=== PATIENT | female | born 1990 | race Caucasian/White ===

== ENCOUNTER 2018-11-06 16:04 | Emergency (ER) | payer MEDICAID ==
[~2018-11-06] VITALS: Ht 170.2 cm; Wt 59.2 kg
[~2018-11-06 16:04] MED LIST: SERT-275
[2018-11-06 16:53] LABS: Basophils # (auto) 0 uL; Basophils % (auto) 0.8 % (0.0-2.0); Eosinophils # (auto) 0 uL; Eosinophils % (auto) 0.3 % (0.0-7.0); Hematocrit 41.5 % (36.0-46.0); Hemoglobin 14.1 g/dL (12.2-16.2); Lymphocytes # (auto) 2.3 uL; Lymphocytes % (auto) 38.7 % (10.0-50.0); Mean Corpuscular Hemoglobin 31.7 pg (28.0-32.0); Mean Corpuscular Volume 93.2 fL (80.0-100.0); Monocytes # (auto) 0.3 uL; Monocytes % (auto) 5.4 % (0.0-12.0); Neutrophils # (auto) 3.3 uL; Neutrophils % (auto) 54.8 % (37.0-80.0); Nucleated Red Blood Cells % 0.1 %; Platelet Count (auto) 262 10^3/uL (140-450); Red Blood Cells 4.45 10^6/uL (4.0-5.20); Red Cell Distribution Width 12.5 % (11.8-14.3)
[2018-11-06 16:59] LABS: Urine Bacteria NONE SEEN /hpf (None Seen); Urine Blood TRACE /uL (Negative); Urine Mucus FEW (None Seen); Urine Specific Gravity 1.037 (1.001-1.035); Urine WBC 6 /hpf (0 - 5)
[2018-11-06 17:06] LABS: Calcium 8.5 mg/dL (8.5-10.1); Potassium 3.8 mmol/L (3.5-5.1)
[2018-11-06 17:09] LABS: BUN/Creatinine Ratio 18.4; Bilirubin, Total 0.2 mg/dL (0.2-1.0); Total Protein 7.8 g/dL (6.4-8.2)
[2018-11-06] MEDS ORDERED: cefTRIAXone 1GM/50ML D5W 50 ML IV ONE (21:15)
[2018-11-06] MEDS ORDERED: ONDANSETRON HCL 4 MG/2 ML VIAL IV ONE (21:15)
[2018-11-06] MEDS ORDERED: SODIUM CHLORIDE 0.9% 1,000 ML IV ONE (21:15)
[2018-11-06 22:03] VITALS: BP 113/79
== END 2018-11-06 23:35 | disposition home or self-care (01) ==
LOC: ER 16:09
DX: N39.0 Urinary tract infection, site not specified (principal); R11.2 Nausea with vomiting, unspecified; N80.9 Endometriosis, unspecified
CPT/HCPCS: 36415; 74176; 80053; 81001; 81025; 82962; 85025; 94761; 96365; 96375; 99284; J0696; J2405; J7030

== ENCOUNTER 2019-02-23 12:42 | Day surgery (SDC) | payer MEDICAID ==
[2019-02-22 11:29] LABS: Basophils # (auto) 0.1 uL; Basophils % (auto) 0.8 % (0.0-2.0); Eosinophils # (auto) 0 uL; Eosinophils % (auto) 0.4 % (0.0-7.0); Hematocrit 40.5 % (36.0-46.0); Hemoglobin 13.7 g/dL (12.2-16.2); Lymphocytes # (auto) 1.5 uL; Lymphocytes % (auto) 19.1 % (10.0-50.0); Mean Corpuscular Hemoglobin 31.5 pg (28.0-32.0); Mean Corpuscular Hgb Conc. 33.9 g/dL (32.0-36.0); Mean Corpuscular Volume 92.9 fL (80.0-100.0); Monocytes # (auto) 0.4 uL; Monocytes % (auto) 5.4 % (0.0-12.0); Neutrophils % (auto) 74.3 % (37.0-80.0); Nucleated Red Blood Cells % 0.1 %; Platelet Count (auto) 275 10^3/uL (140-450); Red Blood Cells 4.36 10^6/uL (4.0-5.20); Red Cell Distribution Width 12.8 % (11.8-14.3); White Blood Cell 8.1 10^3/uL (4.4-10.8)
[2019-02-22 11:43] LABS: Partial Thromboplastin Time 29.3 sec (23.64-32.05)
[2019-02-22 12:19] LABS: Urine Bacteria NONE SEEN /hpf (None Seen); Urine Blood Negative /uL (Negative); Urine Specific Gravity 1.015 (1.001-1.035); Urine WBC <1 /hpf (0 - 5)
[2019-02-22 13:22] LABS: Potassium 4.3 mmol/L (3.5-5.1)
[2019-02-22 13:34] LABS: Albumin 3.8 g/dL (3.4-5.0); BUN/Creatinine Ratio 10.4; Calcium 9.2 mg/dL (8.5-10.1)
[2019-02-22 13:35] LABS: Bilirubin, Total 0.2 mg/dL (0.2-1.0); Total Protein 8.3 g/dL (6.4-8.2)
[~2019-02-23] VITALS: Ht 170.2 cm; Wt 56.7 kg
[2019-02-23] MEDS ORDERED: ceFAZolin 1GM/50ML 50 ML IV ONE (14:56)
[2019-02-23] MEDS ORDERED: ROPIVACAINE 0.5% (5MG/ML) 20ML AMPULE IJ ONE ×2 (16:43→18:29)
[2019-02-23] MEDS ORDERED: fentaNYL CITRATE 100 MCG/2 ML VL ONE (16:52)
[2019-02-23] MEDS ORDERED: MIDAZOLAM HCL 1MG/1ML-2 ML VIAL ONE (16:52)
[2019-02-23] MEDS ORDERED: PROPOFOL 10 MG/ML 20 ML IV ONE (16:54)
[2019-02-23] MEDS ORDERED: fentaNYL CITRATE 100 MCG/2 ML VL IV ONE (18:12)
[2019-02-23] MEDS ORDERED: KETOROLAC TROMETH 30 MG/ML 1ML VIAL IV ONE (18:15)
[2019-02-23] MEDS ORDERED: fentaNYL CITRATE 100 MCG/2 ML VL IV PRN (18:15)
[2019-02-23] MEDS ORDERED: ePHEDrine SULFATE 50 MG/ML AMP IV PRN (18:15)
[2019-02-23] MEDS ORDERED: hydrALAZINE HCL 20 MG/ML VL IV PRN (18:15)
[2019-02-23] MEDS ORDERED: ONDANSETRON HCL 4 MG/2 ML VIAL IV PRN (18:15)
[2019-02-23] MEDS ORDERED: KETOROLAC TROMETH 30 MG/ML 1ML VIAL ONE (18:21)
[2019-02-23] MEDS: fentaNYL CITRATE 100 MCG/2 ML VL IV PRN ×2 (18:38→18:58)
[2019-02-23 19:10] VITALS: BP 126/78
== END 2019-02-23 19:25 | disposition home or self-care (01) ==
LOC: SUR 12:42
PROVIDERS: ATTEND Podiatrist Foot & Ankle Surgery
DX: M20.12 Hallux valgus (acquired), left foot (principal); M20.42 Other hammer toe(s) (acquired), left foot; M21.622 Bunionette of left foot; M21.962 Unspecified acquired deformity of left lower leg; M21.42 Flat foot [pes planus] (acquired), left foot; F41.9 Anxiety disorder, unspecified; F32.9 Major depressive disorder, single episode, unspecified; N80.9 Endometriosis, unspecified
CPT/HCPCS: 28110; 28285; 28296; 29999; 36415; 73620; 80053; 81001; 84702; 85025; 85610; 85730; C1713; C1769; J0690; J1885; J2250; J2704; J2795; J3010; J7030

== ENCOUNTER → 2019-06-08 | Day surgery (SDC) | payer MEDICAID ==
[2019-06-06 13:48] LABS: Basophils # (auto) 0.1 uL; Eosinophils # (auto) 0 uL; Eosinophils % (auto) 0.4 % (0.0-7.0); Hematocrit 40.5 % (36.0-46.0); Hemoglobin 13.7 g/dL (12.2-16.2); Lymphocytes # (auto) 1.7 uL; Lymphocytes % (auto) 26.8 % (10.0-50.0); Mean Corpuscular Hemoglobin 31.3 pg (28.0-32.0); Mean Corpuscular Hgb Conc. 33.7 g/dL (32.0-36.0); Mean Corpuscular Volume 92.9 fL (80.0-100.0); Monocytes # (auto) 0.4 uL; Monocytes % (auto) 6.5 % (0.0-12.0); Neutrophils # (auto) 4.1 uL; Neutrophils % (auto) 65.3 % (37.0-80.0); Platelet Count (auto) 272 10^3/uL (140-450); Red Blood Cells 4.36 10^6/uL (4.0-5.20); Red Cell Distribution Width 12.7 % (11.8-14.3); White Blood Cell 6.2 10^3/uL (4.4-10.8)
[2019-06-06 13:52] LABS: Urine Bacteria FEW /hpf (None Seen); Urine Blood Negative /uL (Negative); Urine Specific Gravity 1.014 (1.001-1.035); Urine WBC 4 /hpf (0 - 5)
[2019-06-06 14:04] LABS: INR 1.07 (0.9-1.15); Partial Thromboplastin Time 29.1 sec (23.64-32.05)
[2019-06-06 14:16] LABS: Albumin 3.7 g/dL (3.4-5.0); BUN/Creatinine Ratio 12.8; Calcium 8.3 mg/dL (8.5-10.1); Potassium 4.4 mmol/L (3.5-5.1)
[2019-06-06 14:19] LABS: Bilirubin, Total 0.3 mg/dL (0.2-1.0)
[~2019-06-08] VITALS: Ht 170.2 cm; Wt 56.7 kg
[~2019-06-08] MED LIST changes: +HYDROmorphone HCL 2 MG/ML VL IV PRN; +LIDOCAINE 1% HCL (LOCAL ANESTH.) INJ 20ML MDV ONE; +LIDOCAINE HCL 2% TOP JELLY 5ML TOP ONE; +METOCLOPRAMIDE HCL 5MG/ml INJ 2ml VIAL ONE; +MIDAZOLAM HCL 1MG/1ML-2 ML VIAL ONE; +NALOXONE HCL 0.4 MG/ML VIAL IV PRN; +NEOMYCIN-BACITRACIN-POLYM 15GM TOP OINT TOP ONE; +NORE1TAB72 PO; +ONDANSETRON HCL 4 MG/2 ML VIAL IV PRN; +PROPOFOL 10 MG/ML 20 ML IV ONE; -SERT-275; +ceFAZolin 1GM/50ML 50 ML IV ONE; +fentaNYL CITRATE 100 MCG/2 ML VL ONE
[2019-06-08] MEDS: HYDROmorphone HCL 2 MG/ML VL IV PRN ×2 (16:28→16:42)
[2019-06-08 17:28] VITALS: BP 103/72
== END | disposition home or self-care (01) ==
LOC: SUR 12:47
PROVIDERS: ATTEND Podiatrist Foot & Ankle Surgery
DX: T84.213A Breakdown (mechanical) of internal fixation device of bones of foot and toes, initial encounter (principal); T84.59XA Infection and inflammatory reaction due to other internal joint prosthesis, initial encounter; Q66.52 Congenital pes planus, left foot; Z98.890 Other specified postprocedural states
CPT/HCPCS: 20680; 29999; 36415; 80053; 81001; 84702; 85025; 85610; 85730; 88300; J0690; J1170; J2001; J2250; J2405; J2704; J2765; J3010; J7030; L3260

== ENCOUNTER 2019-10-31 15:50 | Emergency (ER) | payer MEDICAID ==
[~2019-10-31] VITALS: Ht 170.2 cm; Wt 56.7 kg
[~2019-10-31 15:50] MED LIST changes: -HYDROmorphone HCL 2 MG/ML VL IV PRN; -LIDOCAINE 1% HCL (LOCAL ANESTH.) INJ 20ML MDV ONE; -LIDOCAINE HCL 2% TOP JELLY 5ML TOP ONE; -METOCLOPRAMIDE HCL 5MG/ml INJ 2ml VIAL ONE; -MIDAZOLAM HCL 1MG/1ML-2 ML VIAL ONE; -NALOXONE HCL 0.4 MG/ML VIAL IV PRN; -NEOMYCIN-BACITRACIN-POLYM 15GM TOP OINT TOP ONE; -ONDANSETRON HCL 4 MG/2 ML VIAL IV PRN; -PROPOFOL 10 MG/ML 20 ML IV ONE; -ceFAZolin 1GM/50ML 50 ML IV ONE; -fentaNYL CITRATE 100 MCG/2 ML VL ONE
[2019-10-31 16:46] VITALS: BP 126/86
== END 2019-10-31 16:52 | disposition home or self-care (01) ==
LOC: ER 15:50
DX: S63.91XA Sprain of unspecified part of right wrist and hand, initial encounter (principal); W01.0XXA Fall on same level from slipping, tripping and stumbling without subsequent striking against object, initial encounter; Y93.89 Activity, other specified; Y92.89 Other specified places as the place of occurrence of the external cause; Y99.8 Other external cause status
CPT/HCPCS: 73130

== ENCOUNTER 2020-11-13 20:06 | Emergency (ER) | payer MEDICAID ==
[~2020-11-13] VITALS: Ht 170.2 cm; Wt 59.0 kg
[2020-11-13 20:08] VITALS: BP 127/71
== END 2020-11-14 00:16 | disposition left against medical advice (07) ==
LOC: ER 20:09
DX: M79.672 Pain in left foot (principal); Z53.21 Procedure and treatment not carried out due to patient leaving prior to being seen by health care provider

== ENCOUNTER 2020-11-14 10:09 | Day surgery (SDC) | payer MEDICAID ==
[~2020-11-14] VITALS: Ht 170.2 cm; Wt 59.0 kg
[2020-11-14] MEDS ORDERED: SODIUM CHLORIDE 0.9% 1,000 ML IV ONE (11:00)
[2020-11-14 11:38] LABS: Basophils # (auto) 0 10 ^3/uL (0-0.2); Basophils % (auto) 0.7 % (0.0-2.0); Eosinophils # (auto) 0 10 ^3/uL (0-0.8); Eosinophils % (auto) 0.6 % (0.0-7.0); Hematocrit 39.8 % (36.0-46.0); Hemoglobin 13.3 g/dL (12.2-16.2); Lymphocytes # (auto) 2.1 10 ^3/uL (0.4-5.4); Lymphocytes % (auto) 28.1 % (10.0-50.0); Mean Corpuscular Hemoglobin 30.8 pg (28.0-32.0); Mean Corpuscular Hgb Conc. 33.3 g/dL (32.0-36.0); Mean Corpuscular Volume 92.6 fL (80.0-100.0); Monocytes # (auto) 0.5 10 ^3/uL (0-1.3); Neutrophils # (auto) 4.7 10 ^3/uL (1.6-8.6); Neutrophils % (auto) 63.6 % (37.0-80.0); Nucleated Red Blood Cells % 0.1 %; Platelet Count (auto) 315 10^3/uL (140-450); Red Cell Distribution Width 12.7 % (11.8-14.3); White Blood Cell 7.4 10^3/uL (4.4-10.8)
[2020-11-14 12:01] LABS: Urine Bacteria NONE SEEN /hpf (None Seen); Urine Blood Negative /uL (Negative); Urine Mucus FEW (None Seen); Urine Specific Gravity 1.037 (1.001-1.035); Urine WBC 4 /hpf (0 - 5)
[2020-11-14 12:02] LABS: Albumin 3.5 g/dL (3.4-5.0); Calcium 8.6 mg/dL (8.5-10.1); INR 1.03 (0.9-1.15); Magnesium 2.4 mg/dL (1.6-2.6); Partial Thromboplastin Time 28.3 sec (23.0-31.2); Potassium 4.2 mmol/L (3.5-5.1)
[2020-11-14 12:06] LABS: BUN/Creatinine Ratio 17.9; Bilirubin, Total 0.3 mg/dL (0.2-1.0); Total Protein 7.6 g/dL (6.4-8.2)
[2020-11-14] MEDS ORDERED: ONDANSETRON HCL 4 MG/2 ML VIAL IV ONE (12:45)
[2020-11-14] MEDS ORDERED: MORPHINE SULF INJ 2 MG/ML SYRINGE 1ML IV ONE (12:45)
[2020-11-14] MEDS ORDERED: cefTRIAXone 1GM/50ML D5W 50 ML IV ONE (12:45)
[2020-11-14] MEDS ORDERED: ceFAZolin 1GM/50ML 50 ML IV ONE ×2 (13:39→13:56)
[2020-11-14] MEDS ORDERED: ROPIVACAINE 0.5% (5MG/ML) 20ML AMPULE IJ ONE (14:06)
[2020-11-14] MEDS ORDERED: ROCURONIUM 10MG/ML 10ML VIAL IV ONE (14:18)
[2020-11-14] MEDS ORDERED: PROPOFOL 10 MG/ML 20 ML IV ONE (14:18)
[2020-11-14] MEDS ORDERED: fentaNYL CITRATE 100 MCG/2 ML VL ONE (15:01)
[2020-11-14] MEDS ORDERED: ONDANSETRON HCL 4 MG/2 ML VIAL ONE (15:27)
[2020-11-14] MEDS ORDERED: ONDANSETRON HCL 4 MG/2 ML VIAL IV PRN (15:45)
[2020-11-14] MEDS ORDERED: MEPERIDINE HCL (25 MG/ML) 1ML VIAL ONE (15:45)
[2020-11-14] MEDS ORDERED: HYDROmorphone HCL 2 MG/ML VL IV PRN (15:45)
[2020-11-14 16:25] VITALS: BP 120/74
== END 2020-11-14 16:50 | disposition home or self-care (01) ==
LOC: ER 10:09 → SUR 10:10 → ER 13:31 → SUR 16:50
PROVIDERS: ATTEND Podiatrist Foot & Ankle Surgery
DX: S92.412A Displaced fracture of proximal phalanx of left great toe, initial encounter for closed fracture (principal); F32.9 Major depressive disorder, single episode, unspecified; N80.8 Other endometriosis; F99 Mental disorder, not otherwise specified; Z20.822 Contact with and (suspected) exposure to COVID-19; Z98.890 Other specified postprocedural states; Z79.899 Other long term (current) drug therapy; X58.XXXA Exposure to other specified factors, initial encounter; Y93.89 Activity, other specified; Y92.89 Other specified places as the place of occurrence of the external cause; Y99.9 Unspecified external cause status
CPT/HCPCS: 28505; 36415; 71046; 73620; 73630; 80053; 81001; 83735; 84702; 85025; 85610; 85730; 87426; 93005; C1713; J0690; J0696; J2175; J2270; J2405; J2704; J2795; J3010; 96361; 96365